=== PATIENT | male | born 1960 | race Caucasian/White ===

== ENCOUNTER 2023-11-13 18:35 | Emergency (ER) | payer OTHER ==
[2023-11-13 18:50] VITALS: TEMP 98.3; BMI 32.5
[2023-11-13 20:21] LABS: BASO % 0.3 % (0-2.0); EOS % 3.4 % (0-4.5); HEMATOCRIT 36.2 % (35.4-49); HEMOGLOBIN 12.4 GM/dL (11.7-16.9); LYMPH % 30.2 % (8-40); MCH 30.3 pg (25.7-33.7); MCHC 34.3 g/dl (32.0-35.9); MEAN CELL VOLUME 88.3 fl (80-96); MEAN PLT VOLUME 7.2 fl (7.5-11.1); MONO % 10.3 % (3.8-10.2); NEUT % 55.8 % (42.8-82.8); PLATELET COUNT 72 10^3/uL (134-434); RDW 15.9 % (11.9-15.9)
[2023-11-13 20:30] LABS: INR 1.13 (0.83-1.09); PROTHROMBIN TIME (PATIENT) 12.7 SEC (9.7-13.0)
[2023-11-13 20:43] LABS: URINE APPEARANCE CLEAR; URINE BILIRUBIN NEGATIVE (NEGATIVE); URINE COLOR DK YELLOW; URINE GLUCOSE (UA) NEGATIVE (NEGATIVE); URINE KETONE TRACE (NEGATIVE); URINE LEUK ESTERASE NEGATIVE (NEGATIVE); URINE NITRITE NEGATIVE (NEGATIVE); URINE PROTEIN NEGATIVE (NEGATIVE)
[2023-11-13 20:49] LABS: POTASSIUM 4.5 mmol/L (3.5-5.1)
[2023-11-13 20:51] LABS: ALBUMIN 3.5 g/dl (3.4-5.0); BLOOD UREA NITROGEN 14.6 mg/dL (7-18); CALCIUM 8.8 mg/dL (8.5-10.1); MAGNESIUM 1.9 mg/dL (1.8-2.4)
[2023-11-13 20:56] LABS: BILIRUBIN,TOTAL 0.6 mg/dL (0.2-1); TOT PROT 7.1 g/dl (6.4-8.2)
[2023-11-13 23:10] VITALS: BP 105/60; PULSE 60; RESP 18
== END 2023-11-13 23:10 | disposition home or self-care (01) ==
LOC: JER 18:35
DX: R07.89 Other chest pain (principal)
CPT/HCPCS: 36415; 71046-TC-FY; 71275-TC; 80053; 81003; 83735; 84484; 85025; 85610; 86850; 86870; 86880; 86900; 86901; 86902; 87086; 93005; 93010; 99285-25; Q9967